=== PATIENT | female | born 1975 | race Two or more races ===

== ENCOUNTER 2023-11-12 13:44 | Inpatient (IN) | payer BC ==
[~2023-11-12] VITALS: Ht 167.6 cm; Wt 89.1 kg
[2023-11-12 14:30] VITALS: PULSE 70
[2023-11-12 14:53] LABS: Basophils # (auto) 0 10 ^3/uL (0-0.2); Basophils % (auto) 0.6 % (0.0-2.0); Eosinophils # (auto) 0 10 ^3/uL (0-0.8); Eosinophils % (auto) 0.4 % (0.0-7.0); Hematocrit 41.3 % (36.0-46.0); Hemoglobin 14.1 g/dL (12.2-16.2); Lymphocytes # (auto) 0.9 10 ^3/uL (0.4-5.4); Lymphocytes % (auto) 17.6 % (10.0-50.0); Mean Corpuscular Hgb Conc. 34.1 g/dL (32.0-36.0); Mean Corpuscular Volume 99.6 fL (80.0-100.0); Monocytes # (auto) 0.4 10 ^3/uL (0-1.3); Monocytes % (auto) 7.7 % (0.0-12.0); Neutrophils # (auto) 3.8 10 ^3/uL (1.6-8.6); Neutrophils % (auto) 73.7 % (37.0-80.0); Platelet Count (auto) 219 10^3/uL (140-450); Red Blood Cells 4.14 10^6/uL (4.0-5.20); Red Cell Distribution Width 12.8 % (11.8-14.3); White Blood Cell 5.1 10^3/uL (4.4-10.8)
[2023-11-12] MEDS: SODIUM CHLORIDE 0.9% 1,000 ML IV ONE (15:02)
[2023-11-12 15:16] LABS: Alanine Aminotransferase 20 U/L (7-40); Albumin 4.7 g/dL (3.2-4.8); Alkaline Phosphatase 75 U/L (46-116); Anion Gap 7 (5-15); Aspartate Aminotransferase 21 U/L (13-40); BUN/Creatinine Ratio 7.4 (10.0-20.0); Blood Urea Nitrogen 6 mg/dL (9-23); Calcium 9.4 mg/dL (8.7-10.4); Carbon Dioxide 25 mmol/L (20-30); Chloride 107 mmol/L (98-107); Glucose 99 mg/dL (74-106); Potassium 3.9 mmol/L (3.5-5.1); Sodium 139 mmol/L (136-145)
[2023-11-12 15:17] LABS: Bilirubin, Total 0.8 mg/dL (0.2-1.0); Total Protein 7.6 g/dL (5.7-8.2)
[2023-11-12] MEDS ORDERED: ONDANSETRON HCL 4 MG/2 ML VIAL IV PRN (16:45)
[2023-11-12] MEDS ORDERED: HYDROcodone-ACET 5/325MG TAB PO PRN (16:45)
[2023-11-12] MEDS ORDERED: DOCUSATE SOD 100 MG CAP PO PRN (16:45)
[2023-11-12] MEDS ORDERED: ACETAMINOPHEN 325 MG TAB PO PRN (16:45)
[2023-11-12] MEDS: IOHEXOL 350 MG/ML 100ML IJ ONE (16:55)
[2023-11-12 18:03] LABS: Urine Bacteria MOD /hpf (None Seen); Urine Blood Negative /uL (Negative); Urine Clarity Clear (Clear); Urine Color Colorless (Yellow); Urine Protein, UAD Negative (Negative); Urine Specific Gravity 1.004 (1.001-1.035); Urine Urobilinogen Normal (Negative); Urine WBC 4 /hpf (0 - 5)
[2023-11-12] MEDS ORDERED: ESTR0.1C5 VG (18:08)
[2023-11-12 18:53] VITALS: BP 113/77; PULSE 87; RESP 16; TEMP 98.4; O2SAT 100
[2023-11-12 18:55] VITALS: PULSE 68; RESP 20; O2SAT 100
[2023-11-12 20:00] VITALS: PULSE 85; O2SAT 99
[2023-11-12 22:00] VITALS: BP 134/67; PULSE 94; RESP 16; TEMP 98.5; O2SAT 100
[2023-11-12] MEDS: MELATONIN 5 MG TAB PO ONE (23:13)
[2023-11-12] MEDS: SODIUM CHLOR 0.9% PF (SALINE LOCK) 10ML VIAL/SYR IV SCH (23:13)
[2023-11-12] MEDS ORDERED: MELATONIN 5 MG TAB PO ONE (23:15)
[2023-11-13 05:00] VITALS: BP 113/65; PULSE 63; RESP 16; TEMP 98; O2SAT 98
[2023-11-13 08:00] VITALS: PULSE 64; RESP 18; O2SAT 98
[2023-11-13] MEDS: ENOXAPARIN SOD 40 MG/0.4 ML SYRINGE SC SCH (08:09)
[2023-11-13 09:00] VITALS: BP 107/65; PULSE 80; RESP 20; TEMP 98.9; O2SAT 99
[2023-11-13 13:00] VITALS: BP 108/66; PULSE 66; RESP 20; TEMP 98.3; O2SAT 100
[2023-11-13 14:12] VITALS: BP 108/66; PULSE 66; RESP 18; TEMP 98.3; O2SAT 100
[2023-11-13] MEDS ORDERED: MELATONIN 5 MG TAB PO ONE (22:00)
== END 2023-11-13 14:45 | disposition home or self-care (01) | DRG 69 ==
LOC: ER 13:44 → TELE 16:33 → TELE-WESTW 18:51
PROVIDERS: ADMIT Internal Medicine; ATTEND Internal Medicine
DX: G45.9 Transient cerebral ischemic attack, unspecified (principal); I25.10 Atherosclerotic heart disease of native coronary artery without angina pectoris; Z88.1 Allergy status to other antibiotic agents
CPT/HCPCS: 36415; 70450; 71046; 80053; 81001; 82962; 84443; 84484; 85025; 93005; 93886; G0378